=== PATIENT | female | born 1965 | race Caucasian/White ===

== ENCOUNTER 2016-07-04 11:38 | Emergency (ER) | payer OTHER ==
[2016-07-04 13:19] VITALS: BP 152/85
--- NOTE | 2016-07-04 13:33 | UC ---
Respiratory Complaint HPI - HPI Summary HPI Summary: COUGH , CHEST CONGESTION X 5 DAYS + NASAL CONGESTION, PND, LEFT SIDED CHEST PAIN WITH DEEP INHALATION AND COUGHING , NO SOB - History of Current Complaint Chief Complaint: UCChestPain Stated Complaint: COUGH Time Seen by Provider: 07/04/16 13:16 Hx Obtained From: Patient Hx Last Menstrual Period: N/A Onset/Duration: Gradual Onset, Lasting Days - 5, Still Present Timing: Constant Severity Initially: Moderate Severity Currently: Moderate Character: Cough: Nonproductive Aggravating Factors: Exertion, Deep Breaths Alleviating Factors: Nothing Associated Signs And Symptoms: Positive: Pleuritic Chest Pain, URI, Nasal Congestion, Sinus Discomfort. Negative: Dyspnea, Fever, Chills, Wheezing - Allergies/Home Medications Allergies/Adverse Reactions: Allergies Allergy/AdvReac Type Severity Reaction Status Date / Time No Known Allergies Allergy Verified 04/24/16 15:53 PMH/Surg Hx/FS Hx/Imm Hx Endocrine History Of: Denies: Diabetes Cardiovascular History Of: Reports: Hypertension Respiratory History Of: Reports: COPD - Surgical History Surgical History: Yes Surgery Procedure, Year, and Place: Bilateral Oopherectomy, [place] - Family History Known Family History: Positive: None Negative: Hypertension, Diabetes Family History: no cardiovascular issues reported in family - Social History Alcohol Use: None Substance Use Type: None Smoking Status (MU): Heavy Every Day Tobacco Smoker Type: Cigarettes Amount Used/How Often: 1 1/2 ppd Have You Smoked in the Last Year: Yes Household Exposure Type: Cigarettes - Immunization History Most Recent Influenza Vaccination: March 2016 Review of Systems Constitutional: Negative Skin: Negative Eyes: Negative ENT: Nasal Discharge Respiratory: Cough Cardiovascular: Negative Gastrointestinal: Negative Genitourinary: Negative All Other Systems Reviewed And Are Negative: Yes Physical Exam Triage Information Reviewed: Yes Appearance: Well-Appearing, No Pain Distress, Well-Nourished Vital Signs: Initial Vital Signs Temp 98.5 F 07/04/16 13:07 Pulse 68 07/04/16 13:07 Resp 16 07/04/16 13:07 BP 152/85 07/04/16 13:07 Pulse Ox 97 07/04/16 13:07 Vital Signs Reviewed: Yes Eye Exam: Normal Eyes: Positive: Conjunctiva Clear ENT: Positive: Normal ENT inspection, Hearing grossly normal, Pharyngeal erythema, Nasal congestion, Nasal drainage, TMs normal Neck exam: Normal Neck: Positive: Supple, Nontender, No Lymphadenopathy Respiratory Exam: Normal Respiratory: Positive: Chest non-tender, Lungs clear, Normal breath sounds Cardiovascular: Positive: RRR, No Murmur, Pulses Normal Abdominal Exam: Normal Skin Exam: Normal UC Diagnostic Evaluation - Laboratory O2 Sat by Pulse Oximetry: 97 Respiratory Course/Dx - Differential Dx/Diagnosis Provider Diagnoses: BRONCHITIS Discharge - Discharge Plan Condition: Stable Disposition: HOME Prescriptions: Azithromycin TAB* [Zithromax TAB (Z-ROBBIE) 250 mg #6 tabs] 2 tab PO .TODAY, THEN 1 DAILY #1 robbie Benzonatate CAP* [Tessalon CAP*] 100 mg PO TID PRN #21 cap PRN Reason: Cough Patient Education Materials: Acute Bronchitis (ED) Referrals: ALEX Lynn [Primary Care Provider] -
== END 2016-07-04 13:40 | disposition home or self-care (01) ==
LOC: UCCORT 11:38
DX: J40 Bronchitis, not specified as acute or chronic (principal); F17.210 Nicotine dependence, cigarettes, uncomplicated
CPT/HCPCS: 93005; 99212; G0463

== ENCOUNTER 2016-10-01 21:04 | Emergency (ER) | payer OTHER ==
[2016-10-01 21:35] VITALS: BP 154/71
[2016-10-01] MEDS ORDERED: Amoxicillin/Clavulanate TAB* 875 MG PO ONE (22:05)
[2016-10-01] MEDS ORDERED: Acetaminop/Codeine 30 MG TAB* 1 TAB (300 MG/30 MG) PO ONE (22:06)
[2016-10-01] MEDS ORDERED: Albuterol HFA INHALER* 8 gm MDI INH ONE (22:06)
--- NOTE | 2016-10-01 22:07 | UC ---
Respiratory Complaint HPI - HPI Summary HPI Summary: 7 days of worsening chest congestion, nasal drainage, head and sinus pain - History of Current Complaint Chief Complaint: UCGeneralIllness Stated Complaint: SORE THROAT Time Seen by Provider: 10/01/16 22:00 Hx Obtained From: Patient Hx Last Menstrual Period: N/A ?: No Onset/Duration: Gradual Onset, Lasting Days - 7, Worse Since - today Timing: Constant Severity Initially: Mild Severity Currently: Moderate Character: Cough: Nonproductive Aggravating Factors: Nothing Alleviating Factors: Nothing Associated Signs And Symptoms: Positive: Pleuritic Chest Pain, URI, Nasal Congestion, Sinus Discomfort - Allergies/Home Medications Allergies/Adverse Reactions: Allergies Allergy/AdvReac Type Severity Reaction Status Date / Time No Known Allergies Allergy Verified 10/01/16 21:35 Home Medications: Home Medications Ibuprofen [Advil] 800 mg PO Q6H PRN 10/01/16 [History Confirmed 10/01/16] PMH/Surg Hx/FS Hx/Imm Hx Previously Healthy: No Endocrine History Of: Denies: Diabetes Cardiovascular History Of: Reports: Hypertension Respiratory History Of: Reports: COPD - Surgical History Surgical History: Yes Surgery Procedure, Year, and Place: Bilateral Oopherectomy, 2012, [place] - Family History Known Family History: Positive: None Negative: Hypertension, Diabetes Family History: no cardiovascular issues reported in family - Social History Occupation: Employed Full-time Lives: With Family Alcohol Use: Rare Substance Use Type: None Smoking Status (MU): Heavy Every Day Tobacco Smoker Type: Cigarettes Amount Used/How Often: 1 1/2 ppd Have You Smoked in the Last Year: Yes When Did the Patient Quit Smoking/Using Tobacco: 32 YRS Household Exposure Type: Cigarettes Cessation Counseling: Counseled 3+Min - 10 Min - Immunization History Most Recent Influenza Vaccination: March 2016 Review of Systems Constitutional: Negative Skin: Negative Eyes: Negative ENT: Sore Throat, Nasal Discharge Respiratory: Cough Cardiovascular: Negative Gastrointestinal: Negative Genitourinary: Negative Motor: Negative Neurovascular: Negative Musculoskeletal: Arthralgia Neurological: Headache Psychological: Negative All Other Systems Reviewed And Are Negative: Yes Physical Exam Triage Information Reviewed: Yes Appearance: Ill-Appearing, Pain Distress, Obese Vital Signs: Initial Vital Signs Temp 98.6 F 10/01/16 21:28 Pulse 65 10/01/16 21:28 Resp 18 10/01/16 21:28 BP 154/71 05/14/17 21:28 Pulse Ox 99 10/01/16 21:28 Vital Signs Reviewed: Yes Eye Exam: Normal Eyes: Positive: Conjunctiva Clear ENT Exam: Normal ENT: Positive: Normal ENT inspection, Hearing grossly normal, Pharynx normal, Nasal congestion, Nasal drainage, TMs normal. Negative: Tonsillar swelling, Tonsillar exudate, Trismus, Muffled/hoarse voice Dental Exam: Normal Neck exam: Normal Neck: Positive: Supple, Nontender, No Lymphadenopathy Respiratory Exam: Normal Respiratory: Positive: Chest non-tender, No respiratory distress, No accessory muscle use, Decreased breath sounds, Wheezing Cardiovascular Exam: Normal Cardiovascular: Positive: RRR, No Murmur, Pulses Normal, Brisk Capillary Refill Musculoskeletal Exam: Normal Musculoskeletal: Positive: Strength Intact, ROM Intact, No Edema Neurological Exam: Normal Neurological: Positive: Alert, Muscle Tone Normal Psychological Exam: Normal Skin Exam: Normal UC Diagnostic Evaluation - Laboratory O2 Sat by Pulse Oximetry: 99 Respiratory Course/Dx - Course Course Of Treatment: flonase, albuterol, augmentin,nicotine cesation information , hypertension follow up at [facility] suggestions follow withpcp 1 week - Differential Dx/Diagnosis Differential Diagnosis/HQI/PQRI: Asthma, Bronchitis, Exacerbation Of COPD, Laryngitis, Lower Resp Infection Provider Diagnoses: Acute Rhinosinusitis, Acute exacerbation of COPD, nicotine dependant, hypertension with dx and treatment Discharge - Discharge Plan Condition: Stable Disposition: HOME Prescriptions: Albuterol HFA INHALER* [Ventolin HFA Inhaler*] 2 puff INH Q4H PRN #1 mdi PRN Reason: cough Amoxicillin/Clavulanate TAB* [Augmentin TAB 875*] 875 mg PO BID #19 tab Fluticasone NASAL SPRAY 50MCG* [Flonase NASAL SPRAY 50MCG*] 2 spray BOTH NARES DAILY #1 btl Patient Education Materials: How to Use a Metered-Dose Inhaler and a Spacer (ED ), How to Use Nasal [place] (ED), Sinusitis (ED), DASH Eating Plan (ED), Hypertension (ED), How to Stop Smoking (ED) Forms: *Work Release Referrals: ALEX Lynn [Primary Care Provider] - 2 Weeks
== END 2016-10-01 22:28 | disposition home or self-care (01) ==
LOC: UCCORT 21:04
DX: I10 Essential (primary) hypertension (principal); E66.9 Obesity, unspecified; F17.210 Nicotine dependence, cigarettes, uncomplicated; Z71.6 Tobacco abuse counseling
CPT/HCPCS: 99213; A9270-GY; G0463

== ENCOUNTER 2016-10-26 15:39 | Emergency (ER) | payer OTHER ==
[2016-10-26 16:11] VITALS: BP 148/63
--- NOTE | 2016-10-26 16:35 | UC ---
Eye Complaint HPI - HPI Summary HPI Summary: Patient has been treated for a cellulitis of the upper eye lid of the left eye with amoxicillin, she has not been able to tolerate the amoxicillin as it hurts her stomach. she does not improvement in the eye swelling and pain. - History of Current Complaint Chief Complaint: UCUpperExtremity Stated Complaint: WRIST PAIN Time Seen by Provider: 10/26/16 16:25 Hx Obtained From: Patient Hx Last Menstrual Period: N/A ?: No Onset/Duration: Sudden Onset, Lasting Days Timing: Constant Severity Initially: Severe Severity Currently: Moderate Location of Injury: Conjunctiva, Eye Lid (upper) Character: Dull Aggravating Factor(s): Nothing Alleviating Factor(s): Nothing Associated Signs And Symptoms: Positive: Swelling - Risk Factors Penetrating Injury Risk Factor: Negative Globe Rupture Risk Factors: Negative Acute Glaucoma Risk Factors: Negative Optic Artery Occlusion Risk Factors: Negative - Allergies/Home Medications Allergies/Adverse Reactions: Allergies Allergy/AdvReac Type Severity Reaction Status Date / Time No Known Allergies Allergy Verified 10/26/16 16:04 PMH/Surg Hx/FS Hx/Imm Hx Previously Healthy: Yes - Surgical History Surgical History: Yes Surgery Procedure, Year, and Place: Bilateral Oopherectomy, 2012, [place] - Family History Known Family History: Positive: None Negative: Hypertension, Diabetes Family History: no cardiovascular issues reported in family - Social History Alcohol Use: Rare Substance Use Type: None Smoking Status (MU): Heavy Every Day Tobacco Smoker Type: Cigarettes Amount Used/How Often: 1 1/2 ppd Have You Smoked in the Last Year: Yes When Did the Patient Quit Smoking/Using Tobacco: 32 YRS Household Exposure Type: Cigarettes - Immunization History Most Recent Influenza Vaccination: March 2016 Review of Systems Constitutional: Negative Skin: Negative Eyes: Other - deviation of gaze. eye lid swelling ENT: Negative Respiratory: Negative Cardiovascular: Negative Gastrointestinal: Negative Genitourinary: Negative Motor: Negative Neurovascular: Negative Musculoskeletal: Negative Neurological: Negative Psychological: Negative All Other Systems Reviewed And Are Negative: Yes Physical Exam Triage Information Reviewed: Yes Appearance: Well-Nourished, Ill-Appearing, Pain Distress Vital Signs: Initial Vital Signs Temp 99.0 F 10/26/16 16:05 Pulse 57 10/26/16 16:05 Resp 16 10/26/16 16:05 BP 148/63 10/26/16 16:05 Pulse Ox 98 10/26/16 16:05 Vital Signs Reviewed: Yes Eye Exam: Normal Eyes: Positive: Conjunctiva Inflamed, Other: - upper lid swelling noted, conjunctiva swollen, sclear white, non icteric, left eye deviated laterally. ENT Exam: Normal ENT: Positive: Hearing grossly normal, Pharynx normal, TMs normal Dental Exam: Normal Neck exam: Normal Neck: Positive: Supple, Nontender, No Lymphadenopathy Respiratory Exam: Normal Respiratory: Positive: Chest non-tender, Lungs clear, Normal breath sounds Cardiovascular Exam: Normal Cardiovascular: Positive: RRR, No Murmur, Pulses Normal Abdominal Exam: Normal Abdomen Description: Positive: Nontender, No Organomegaly, Soft Bowel Sounds: Positive: Present Musculoskeletal Exam: Normal Musculoskeletal: Positive: Strength Intact, ROM Intact, No Edema Neurological Exam: Normal Neurological: Positive: Alert, Muscle Tone Normal Psychological Exam: Normal Skin Exam: Normal Eye Complaint Course/Dx - Course Course Of Treatment: hx obtained,exam performed ,meds reviewed, changed ABX to keflex - Differential Dx/Diagnosis Differential Diagnosis/HQI/PQRI: Conjunctivitis, Hyphema, Keratitis, Penetrating Injury, Periorbital Cellulitis Provider Diagnoses: orbital cellulitis of left eye Discharge - Discharge Plan Condition: Stable Disposition: HOME Prescriptions: Cephalexin CAP* [Keflex CAP*] 500 mg PO TID #21 cap Patient Education Materials: Orbital Cellulitis (ED) Additional Instructions: 1. stop the amoxicillin, start the keflex as prescribed. 2. Continue with the warm compresses to the eye multiple times a day,. 3. follow up with any increase in swelling or pain.
--- NOTE | 2016-10-26 16:47 | UC ---
Upper Extremity HPI - HPI Summary HPI Summary: Patient has has increased swelling and pain in the right wrist for the past week , does not remember any injury. - History of Current Complaint Hx Obtained From: Patient Hx Last Menstrual Period: N/A ?: No Onset/Duration: Sudden Onset, Lasting Weeks Severity Initially: Moderate Severity Currently: Severe Location Of Pain: Is Discrete @ - lateral right wrist Character: Aching, Spasmodic, Stiffness Aggravating Factor(s): Movement Alleviating Factor(s): Nothing Associated Signs And Symptoms: Positive: Swelling, Weakness - Risk Factors Non-Orthopedic Risk Factor: Negative <Lexie Dominguez - Last Filed: 10/26/16 17:36> <Nancy Orozco - Last Filed: 10/26/16 18:45> - History of Current Complaint Chief Complaint: UCUpperExtremity Stated Complaint: WRIST PAIN Time Seen by Provider: 10/26/16 16:25 - Allergies/Home Medications Allergies/Adverse Reactions: Allergies Allergy/AdvReac Type Severity Reaction Status Date / Time No Known Allergies Allergy Verified 10/26/16 16:04 PMH/Surg Hx/FS Hx/Imm Hx Previously Healthy: Yes - Surgical History Surgical History: Yes Surgery Procedure, Year, and Place: Bilateral Oopherectomy, 2012, [place] - Family History Known Family History: Positive: None Negative: Hypertension, Diabetes Family History: no cardiovascular issues reported in family - Social History Alcohol Use: Rare Substance Use Type: None Smoking Status (MU): Heavy Every Day Tobacco Smoker Type: Cigarettes Amount Used/How Often: 1 1/2 ppd Have You Smoked in the Last Year: Yes When Did the Patient Quit Smoking/Using Tobacco: 32 YRS Household Exposure Type: Cigarettes - Immunization History Most Recent Influenza Vaccination: March 2016 <Lexie Dominguez - Last Filed: 10/26/16 17:36> Review of Systems Constitutional: Negative Skin: Negative Eyes: Negative ENT: Negative Respiratory: Negative Cardiovascular: Negative Gastrointestinal: Negative Genitourinary: Negative Motor: Negative Neurovascular: Negative Musculoskeletal: Arthralgia, Decreased ROM, Edema, Myalgia Neurological: Negative Psychological: Negative All Other Systems Reviewed And Are Negative: Yes <Lexie Dominguez - Last Filed: 10/26/16 17:36> Physical Exam Triage Information Reviewed: Yes Appearance: Well-Nourished, Ill-Appearing, Pain Distress Vital Signs: Initial Vital Signs Temp 99.0 F 10/26/16 16:05 Pulse 57 10/26/16 16:05 Resp 16 10/26/16 16:05 BP 148/63 10/26/16 16:05 Pulse Ox 98 10/26/16 16:05 Vital Signs Reviewed: Yes Eye Exam: Normal Eyes: Positive: Conjunctiva Clear ENT Exam: Normal ENT: Positive: Hearing grossly normal, Pharynx normal, TMs normal Dental Exam: Normal Neck exam: Normal Neck: Positive: Supple, Nontender, No Lymphadenopathy Respiratory Exam: Normal Respiratory: Positive: Chest non-tender, Lungs clear, Normal breath sounds Cardiovascular Exam: Normal Cardiovascular: Positive: RRR, No Murmur, Pulses Normal Abdominal Exam: Normal Abdomen Description: Positive: Nontender, No Organomegaly, Soft Bowel Sounds: Positive: Present Musculoskeletal Exam: Normal Musculoskeletal: Positive: Strength Limited @, ROM Limited @, Edema @ - in right wrist, Other: - PROM and AROM is painful in all directions Neurological Exam: Normal Neurological: Positive: Alert, Muscle Tone Normal Psychological Exam: Normal Skin Exam: Normal <Lexie Dominguez - Last Filed: 10/26/16 17:36> Vital Signs: Initial Vital Signs Temp 99.0 F 10/26/16 16:05 Pulse 57 10/26/16 16:05 Resp 16 10/26/16 16:05 BP 148/63 10/26/16 16:05 Pulse Ox 98 10/26/16 16:05 <Nancy Orozco - Last Filed: 10/26/16 18:45> Upper Extremity Course/Dx - Course Course Of Treatment: hx obtained,exam performed ,meds reviewed, xray obtained negative for fracture, splint appliled, referral for Ortho given.., - Differential Dx/Diagnosis Differential Diagnosis/HQI/PQRI: Arthritis, Bursitis, Contusion, Fracture (Open) , Fracture (Closed), Strain, Sprain Provider Diagnoses: right wrist strain. right wrist sprain. <Lexie Dominguez - Last Filed: 10/26/16 17:36> - Course Course Of Treatment: Note from Dr. Orozco after discussion with Lexie Dominguez , JADA. Cephalexin not given to this pt. Pharmacy notified not to fill cephalexin for this patient. <Nancy Orozco - Last Filed: 10/26/16 18:45> Discharge <Lexie Dominguez - Last Filed: 10/26/16 17:36> <Nancy Orozco - Last Filed: 10/26/16 18:45> - Discharge Plan Condition: Stable Disposition: HOME Prescriptions: Cephalexin CAP* [Keflex CAP*] 500 mg PO TID #21 cap Meloxicam [Mobic] 15 mg PO DAILY #30 tab Referrals: Buddy Zendejas MD [Medical Doctor] - Edy GamingEdy [Primary Care Provider] - Additional Instructions: 1. wear the splint for rest and support, 2. Take the meloxicam daily for anti inflammatory affects. 3. Ice or heat as tolerated. 5. Follow up with ortho if pain is not resolving. Addendum entered and electronically signed by Lexie Dominguez NP 10/26/16 17: 36: Addendum Addendum: splint applied and meloxicam given.
--- NOTE | 2016-10-26 17:16 | RAD ---
Indication: Right wrist pain 3 views of the wrist demonstrates no fracture. No other bone or joint abnormality is identified. There may be degenerative changes at the trapezium first metacarpal joint. IMPRESSION: NO FRACTURE OF THE WRIST IS NOTED.
== END 2016-10-26 17:50 | disposition home or self-care (01) ==
LOC: UCCORT 15:39
DX: S63.501A Unspecified sprain of right wrist, initial encounter (principal); F17.210 Nicotine dependence, cigarettes, uncomplicated; X58.XXXA Exposure to other specified factors, initial encounter; Y92.9 Unspecified place or not applicable
CPT/HCPCS: 99213; G0463

== ENCOUNTER 2017-02-01 07:11 | Day surgery (SDC) | payer OTHER ==
[~2017-02-01 07:11] MED LIST: Buffered Lidocaine 0.9% SYRIN* 5 ML/SYR SYRINGE INTRADERM ONE
[2017-02-01] MEDS ORDERED: Bupivacaine 0.25% SDV* 30 ML ONE (07:47)
[2017-02-01] MEDS ORDERED: fentaNYL* 50 MCG/ML 2 ML VIAL (100 MCG VIAL) ONE (08:17)
[2017-02-01] MEDS ORDERED: Midazolam* 1 MG/ML 2 ML VIAL (2 MG) ONE ×2 (08:17→08:29)
[2017-02-01] MEDS ORDERED: Famotidine IV* 10 MG/ML 2 ML (20 mg) ONE (08:23)
[2017-02-01] MEDS ORDERED: KETAMINE HCL* 50 MG/ML 10 ML VIAL ONE (08:31)
[2017-02-01] MEDS ORDERED: HYDROcodone/ACETAMIN 5-325 MG* 1 TAB PO PRN (09:07)
[2017-02-01] MEDS ORDERED: PROCHLORPERAZINE INJ 5 MG/ML 2 ML VIAL IV PRN (09:07)
[2017-02-01] MEDS ORDERED: fentaNYL* 50 MCG/ML 2 ML VIAL (100 MCG VIAL) IV PRN (09:07)
[2017-02-01] MEDS ORDERED: Acetaminophen TAB* 325 MG PO PRN (09:07)
[2017-02-01] MEDS ORDERED: Ondansetron INJ* 2 MG/ML VIAL IV PRN (09:07)
[2017-02-01] MEDS ORDERED: DiMENhydriNATE IV* 50 MG/ML VIAL IV PUSH PRN (09:07)
[2017-02-01] MEDS ORDERED: Propofol* 10 MG/ML 20 ML BTL IV PUSH ONE (09:08)
[2017-02-01] MEDS ORDERED: Ketorolac INJ* 30 MG/ML 1 ML VIAL ONE (09:08)
[2017-02-01] MEDS ORDERED: Lidocaine 2% PF * 5 ML VIAL ONE (09:08)
[2017-02-01 09:47] VITALS: BP 133/55
--- NOTE | 2017-02-01 19:24 | OP ---
DATE OF OPERATION: 02/01/17 - [facility] DATE OF : 63 SURGEON: Craig Driver MD CAREER SERVICES COORDINATOR: LETY Nieto ANESTHESIOLOGIST: Dr. Juárez. ANESTHESIA: Local MAC. PRE-OP DIAGNOSIS: Right de Quervain's disease with ganglion cyst off the first dorsal compartment tendon sheath. POST-OP DIAGNOSIS: Right de Quervain's disease with ganglion cyst off the first dorsal compartment tendon sheath. OPERATIVE PROCEDURE: 1. Right wrist de Quervain's release. 2. Excision of ganglion, right first dorsal compartment tendon sheath. INDICATIONS: Simin has had recurrent de Quervain's disease. After an injection, she had a cyst that had popped up off the tendon sheath and was quite large. This was very uncomfortable for her. We had talked about doing another injection versus surgery. She wanted to proceed with surgery. We talked about risks and benefits and what the surgery entails. She wanted to proceed. ESTIMATED BLOOD LOSS: 5 mL. COMPLICATIONS: None. FINDINGS: As expected, there was a ganglion cyst off the volar aspect of the tendon sheath. There was an accessory compartment and abundant tenosynovitis. DESCRIPTION OF PROCEDURE: Simin was seen in the preoperative holding area. The correct site, side, and procedure were identified. We came back to the operating room where she got some anesthesia and then I anesthetized the operative area with 0.25% plain Marcaine. The arm was then prepped and draped in the usual fashion and a formal time-out was performed. I exsanguinated the arm with the Esmarch and the tourniquet was inflated to 250 mmHg. I began by making a transverse 2 cm incision just a bit proximal to the radial styloid right over the first dorsal compartment tendon sheath and on the proximal aspect of the cyst. Full thickness flaps were bluntly raised off the tendon sheath, and Ragnell retractors were placed. With the tendon sheath under direct visualization, the cyst was readily apparent. I came on the dorsal margin of the tendon sheath and I incised this in line with the tendons using the 15 blade. I continued the release proximally and distally with the tenotomy scissors. A Hosea retractor was used proximally and distally to ensure that there was no interposing soft tissue between the tendon sheath and the scissors. Once I had done the release completely, I came back volarly and I excised the ganglion cyst and cauterized the base. This was passed off as a specimen. I then excised an abundant amount of tenosynovitis. There was really quite a bit. Once I had this all excised, it was readily apparent that dorsally there was an accessory compartment. I used the #15 blade to longitudinally incise the septum between the compartments. The tenotomy scissors were used to continue this release proximally and distally. I then used the tenotomy scissors to excise the septum at the base. I excised more tenosynovium. Once everything was nice and clean and the release was complete, I irrigated out copiously, I made sure the tendons were nicely back inside the flaps of the tendon sheath. The skin was closed with 3-0 Monocryl suture and Steri-Strips. Wound was dressed with 4x4, sterile Webril, and a thumb spica splint was placed. Tourniquet was deflated. The hand pinked up immediately. Total tourniquet time was about 20 to 25 minutes. She was taken to the recovery room in stable condition. [id number]/[facility] #: [id number] RAMIRO
== END 2017-02-01 09:55 | disposition home or self-care (01) ==
LOC: OREAST 07:11
PROVIDERS: ATTEND Orthopaedic Surgery Hand Surgery
DX: M65.4 Radial styloid tenosynovitis [de Quervain] (principal); M67.431 Ganglion, right wrist; I10 Essential (primary) hypertension; F17.210 Nicotine dependence, cigarettes, uncomplicated
CPT/HCPCS: 88304; J1885; J2250; J2704; J3010

== ENCOUNTER 2017-06-15 11:55 | Emergency (ER) | payer OTHER ==
[2017-06-15 13:13] VITALS: BP 131/65
--- NOTE | 2017-06-15 14:03 | UC ---
Respiratory Complaint HPI - HPI Summary HPI Summary: 51F presents with cough, SOB for past couple days. She states she has developed a fever. She denies any sore throat. She denies any chest pain. She denies any abdominal pain, nausea, or vomiting. She took some OTC cough medication which helped. She states the cough is productive. She denies any sinus congestion. She admits to a headache. She denies any sore throat. - History of Current Complaint Chief Complaint: UCRespiratory Stated Complaint: COUGH,FEVER,NAUSEA Time Seen by Provider: 06/15/17 13:57 Hx Last Menstrual Period: N/A Pain Intensity: 3 - Allergies/Home Medications Allergies/Adverse Reactions: Allergies Allergy/AdvReac Type Severity Reaction Status Date / Time No Known Allergies Allergy Verified 06/15/17 13:06 PMH/Surg Hx/FS Hx/Imm Hx Endocrine History: Other Other Endocrine History: no DM Cardiovascular History: Hypertension - Surgical History Surgical History: Yes Surgery Procedure, Year, and Place: 2012 Bilateral Oopherectomy, [place] - Family History Known Family History: Positive: None Negative: Hypertension, Diabetes Family History: no cardiovascular issues reported in family - Social History Alcohol Use: None Alcohol Amount: MAYBE 2 DRINKS/YEAR Substance Use Type: None Smoking Status (MU): Heavy Every Day Tobacco Smoker Type: Cigarettes Amount Used/How Often: 1 1/2 ppd Have You Smoked in the Last Year: Yes When Did the Patient Quit Smoking/Using Tobacco: 32 YRS Household Exposure Type: Cigarettes - Immunization History Most Recent Influenza Vaccination: March 2016 Review of Systems Constitutional: Fever ENT: Nasal Discharge Respiratory: Shortness Of Breath, Cough Cardiovascular: Negative All Other Systems Reviewed And Are Negative: Yes Physical Exam Triage Information Reviewed: Yes Appearance: Well-Appearing Vital Signs: Initial Vital Signs Temp 99.5 F 06/15/17 13:07 Pulse 60 06/15/17 13:07 Resp 18 06/15/17 13:07 BP 131/65 06/15/17 13:07 Pulse Ox 100 06/15/17 13:07 Vital Signs Reviewed: Yes Eyes: Positive: Conjunctiva Clear ENT: Positive: Normal ENT inspection, Pharynx normal, TMs normal Neck: Positive: Supple, Nontender, No Lymphadenopathy Respiratory: Positive: Lungs clear, Normal breath sounds Cardiovascular: Positive: RRR Abdomen Description: Positive: Nontender, Soft Bowel Sounds: Positive: Present Musculoskeletal Exam: Normal Neurological Exam: Normal Psychological Exam: Normal Skin Exam: Normal UC Diagnostic Evaluation - Laboratory O2 Sat by Pulse Oximetry: 100 Respiratory Course/Dx - Course Course Of Treatment: 51F presents with cough, SOB for past couple days. She states she has developed a fever. She denies any sore throat. She denies any chest pain. She denies any abdominal pain, nausea, or vomiting. She took some OTC cough medication which helped. She states the cough is productive. She denies any sinus congestion. She admits to a headache. She denies any sore throat. on exam lungs CTA. flu post. will treat with inhaler, prednisone, and tessalon and tamiflu. patient has history of high blood pressure so blood pressure is good at this visit. medication reviewed. patient understand and agrees with plan. - Differential Dx/Diagnosis Differential Diagnosis/HQI/PQRI: Bronchitis, Influenza, Lower Resp Infection Provider Diagnoses: influenza A Discharge - Discharge Plan Condition: Good Disposition: HOME Prescriptions: Albuterol HFA INHALER* [Ventolin HFA Inhaler*] 1 puff INH Q4H PRN #1 mdi PRN Reason: Cough Benzonatate CAP* [Tessalon 100 MG CAP*] 100 mg PO TID #21 cap Oseltamivir CAP* [Tamiflu CAP*] 75 mg PO BID #10 cap predniSONE TAB* [Deltasone TAB*] 50 mg PO DAILY #5 tab Patient Education Materials: Influenza (ED) Referrals: Mariaelena Rubio MD [Primary Care Provider] - Additional Instructions: Take tamiflu twice a day for 5 days Use Tessalon three times a day for cough Use inhaler one puff every 4 hours for cough as needed Take steroid once a day for 5 days Use saline in the nose for nasal congestion Use humidifier or place warm bowls of water around the room for cough Cough can last up to 4 weeks Follow up with primary care physician in 5 days Return to ED if develop any new or worsening symptoms
== END 2017-06-15 14:24 | disposition home or self-care (01) ==
LOC: UCCORT 11:55
DX: J09.X2 Influenza due to identified novel influenza A virus with other respiratory manifestations (principal); I10 Essential (primary) hypertension; F17.210 Nicotine dependence, cigarettes, uncomplicated
CPT/HCPCS: 87502; 99212; G0463

== ENCOUNTER 2017-10-17 17:34 | Emergency (ER) | payer OTHER ==
[2017-10-17 18:09] VITALS: BP 133/69
--- NOTE | 2017-10-17 19:14 | ED ---
Upper Extremity Pain - HPI Summary HPI Summary: 52 yr old female with left wrist pain. Onset over the past day with some associated mild STS. 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 Denies weakness, numbness in the hand. No swelling or pain to forearm or arm. - History of Current Complaint Chief Complaint: UCUpperExtremity Stated Complaint: L WRIST ISSUE Time Seen by Provider: 10/17/17 18:45 Hx Last Menstrual Period: N/A - Allergies/Home Medications Allergies/Adverse Reactions: Allergies Allergy/AdvReac Type Severity Reaction Status Date / Time No Known Allergies Allergy Verified 06/15/17 13:06 Home Medications: Home Medications Gabapentin [Neurontin] 100 mg PO DAILY 10/17/17 [History Confirmed 10/17/17] buPROPion TAB* [Wellbutrin TAB*] 100 mg PO DAILY 10/17/17 [History Confirmed ] PMH/Surg Hx/FS Hx/Imm Hx Endocrine/Hematology History: Denies: Hx Diabetes Cardiovascular History: Reports: Hx Hypertension - ON DAILY MEDS, STATES WELL CONTROLLED Respiratory History: Reports: Hx Chronic Obstructive Pulmonary Disease (COPD) GI History: Reports: Hx Gastroesophageal Reflux Disease - Hx OF NO DAILY MEDS CURRENTLY Sensory History: Reports: Hx Contacts or Glasses - GLASSES Opthamlomology History: Reports: Hx Contacts or Glasses - GLASSES Psychiatric History: Reports: Hx Anxiety - Hx OF, NO Sx IN FEW YEARS, NO MEDS - Surgical History Surgery Procedure, Year, and Place: 2013 Bilateral Oopherectomy. RIGHT WRIST GANGLION CYST REMOVAL Hx Anesthesia Reactions: No Infectious Disease History: No Infectious Disease History: Denies: Traveled Outside the [place] in Last 30 Days - Family History Known Family History: Positive: None Negative: Hypertension, Diabetes Family History: no cardiovascular issues reported in family - Social History Alcohol Use: None Alcohol Amount: MAYBE 2 DRINKS/YEAR Substance Use Type: Reports: None Smoking Status (MU): Heavy Every Day Tobacco Smoker Type: Cigarettes Amount Used/How Often: 1 1/2 ppd Have You Smoked in the Last Year: Yes Review of Systems Constitutional: Negative Positive: Other - left wrist pain All Other Systems Reviewed And Are Negative: Yes Physical Exam Triage Information Reviewed: Yes Vital Signs On Initial Exam: Initial Vitals Temp Pulse Resp BP Pulse Ox 97.4 F 58 16 133/69 99 10/17/17 18:00 10/17/17 18:00 10/17/17 18:00 10/17/17 18:00 10/17/17 18:00 Vital Signs Reviewed: Yes Appearance: Positive: Well-Appearing, No Pain Distress Skin: Positive: Warm, Skin Color Reflects Adequate Perfusion Head/Face: Positive: Normal Head/Face Inspection Eyes: Positive: EOMI ENT: Positive: Normal ENT inspection Neck: Positive: Nontender Respiratory/Lung Sounds: Positive: Clear to Auscultation, Breath Sounds Present Cardiovascular: Positive: RRR, Pulses are Symmetrical in both Upper and Lower Extremities. Negative: Murmur Abdomen Description: Positive: Nontender Musculoskeletal: Positive: Other - left wrist with some edema, and mild tenderness, no increased warmth. No bruise. Neurological: Positive: Sensory/Motor Intact, Alert, Oriented to Person Place, Time, CN Intact II-III Psychiatric: Positive: Normal - Gabriela Coma Scale Best Eye Response: 4 - Spontaneous Best Motor Response: 6 - Obeys Commands Best Verbal Response: 5 - Oriented Coma Scale Total: 15 Diagnostics - Vital Signs Vital Signs Temp Pulse Resp BP Pulse Ox 10/17/17 18:00 97.4 F 58 16 133/69 99 - Laboratory Lab Statement: Any lab studies that have been ordered have been reviewed, and results considered in the medical decision making process. - Radiology wrist left Xray Interpretation: No Acute Changes Radiology Interpretation Completed By: Radiologist Course/Dx - Course Course Of Treatment: 52 yr old with left wrist pain, and mild swelling. No redness or increased warmth. Will give wrist splint. Referral to ortho made. Wrist splint ordered. - Diagnoses Provider Diagnoses: Left wrist sprain Discharge - Sign-Out/Discharge Documenting (check all that apply): Discharge/Admit/Transfer - Discharge Plan Condition: Good Disposition: HOME Patient Education Materials: Wrist Sprain (ED) Referrals: Mariaelena Rubio MD [Primary Care Provider] - 2 Days Buddy Zendejas MD [Medical Doctor] - - Billing Disposition and Condition Condition: GOOD Disposition: HOME
--- NOTE | 2017-10-17 19:17 | RAD ---
HISTORY: Left wrist pain and swelling COMPARISONS: None VIEWS: 3, Frontal, lateral, and oblique views of the left wrist FINDINGS: BONE DENSITY: Normal. BONES: There is no displaced fracture. JOINTS: There is no arthropathy. ALIGNMENT: There is no dislocation. SOFT TISSUES: Unremarkable. OTHER FINDINGS: None. IMPRESSION: NO ACUTE OSSEOUS INJURY. IF SYMPTOMS PERSIST, RECOMMEND REPEAT IMAGING.
== END 2017-10-17 19:31 | disposition home or self-care (01) ==
LOC: UCCORT 17:34
DX: S63.502A Unspecified sprain of left wrist, initial encounter (principal); X50.0XXA Overexertion from strenuous movement or load, initial encounter; Y93.F2 Activity, caregiving, lifting; Y92.9 Unspecified place or not applicable; I10 Essential (primary) hypertension; F17.210 Nicotine dependence, cigarettes, uncomplicated
CPT/HCPCS: 99213; G0463

== ENCOUNTER 2018-07-27 10:31 | Emergency (ER) | payer OTHER ==
[2018-07-27 11:13] VITALS: BP 154/80
--- NOTE | 2018-07-27 11:39 | UC ---
Cardiac HPI - HPI Summary HPI Summary: 53-year-old female presents with onset of left-sided chest wall pain yesterday. Patient states that she did have a colonoscopy performed yesterday. Later in the day started noticing some sharp mid axillary and anterior chest wall pain especially with deep breath. 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 She took ibuprofen 800 mg 1 yesterday with little relief so she took one of her muscle relaxants last night and was able to sleep through the night. States continue to have chest pain particularly with deep breath today so came for evaluation. She does note that she's had some mild nasal congestion and occasional productive cough for green sputum over the past 2-3 weeks. Denies fever, chills, rash, weakness, dizziness, lightheadedness, palpitations, shortness of breath, abdominal pain, nausea, vomiting, back or flank pain, dysuria, frequency, urgency, or hematuria. Patient does smoke 1-1/2 packs of cigarettes a day. Past medical history is significant for hypertension and COPD. Family history is significant for younger sisters both dying of heart attacks one at the age of 31 in 1997 and the other at the age of 40 in 2009. - History of Current Complaint Chief Complaint: UCUpperExtremity Stated Complaint: L ARMPIT/SIDE PAIN Time Seen by Provider: 07/27/18 11:19 Hx Obtained From: Patient Hx Last Menstrual Period: N/A Pain Intensity: 5 - Allergy/Home Medications Allergies/Adverse Reactions: Allergies Allergy/AdvReac Type Severity Reaction Status Date / Time No Known Allergies Allergy Verified 07/27/18 11:13 PMH/Surg Hx/FS Hx/Imm Hx Previously Healthy: Yes Cardiovascular History: Hypertension Respiratory History: COPD Psychological History: Depression - Surgical History Surgical History: Yes Surgery Procedure, Year, and Place: 2012 Bilateral Oopherectomy. RIGHT WRIST GANGLION CYST REMOVAL - Family History Known Family History: Positive: Cardiac Disease - 2 younger sisters of [place] at age of 31 and 40 Negative: Hypertension, Diabetes - Social History Occupation: Employed Full-time Lives: With Family Alcohol Use: Rare Alcohol Amount: MAYBE 2 DRINKS/YEAR Substance Use Type: None Smoking Status (MU): Heavy Every Day Tobacco Smoker Type: Cigarettes Amount Used/How Often: 1 1/2 ppd Have You Smoked in the Last Year: Yes When Did the Patient Quit Smoking/Using Tobacco: 32 YRS Household Exposure Type: Cigarettes - Immunization History Most Recent Influenza Vaccination: March 2016 Review of Systems All Other Systems Reviewed And Are Negative: Yes Constitutional: Negative: Fever, Chills Skin: Negative: Rash ENT: Positive: Nasal Discharge, Sinus Congestion. Negative: Sore Throat, Ear Ache, Sinus Pain/Tenderness Respiratory: Positive: Cough. Negative: Shortness Of Breath Cardiovascular: Positive: Chest Pain - Left chest wall. Negative: Palpitations Gastrointestinal: Negative: Abdominal Pain, Vomiting, Diarrhea, Nausea Genitourinary: Negative: Dysuria, Hematuria, Frequency, Urgency Motor: Negative: Weakness Neurovascular: Negative: Decreased Sensation Musculoskeletal: Negative: Arthralgia, Calf Tenderness - No swelling Neurological: Positive: Negative Is Patient Immunocompromised?: No Physical Exam - Summary Physical Exam Summary: GENERAL APPEARANCE: Well developed, obese, alert and cooperative, and appears to be in no acute distress. EYES: Conjunctiva clear. No drainage. Vision is grossly intact. EARS: External auditory canals and tympanic membranes clear, hearing grossly intact. NOSE: Mild nasal congestion. No nasal discharge. THROAT: Pharynx normal. No tonsilar inflammation, swelling, exudate, or lesions. Uvula midline. NECK: Neck supple, non-tender without lymphadenopathy. CHEST: Left mid axillary and lower anterior chest wall tenderness with palpation. CARDIAC: Normal S1 and S2. No S3, S4 or murmurs. Rhythm is regular. There is no peripheral edema, cyanosis or pallor. Extremities are warm and well perfused. Capillary refill is less than 2 seconds. Peripheral pulses intact. LUNGS: Clear to auscultation without rales, rhonchi, wheezing or diminished breath sounds. ABDOMEN: Positive bowel sounds. Soft, nondistended, nontender. No guarding or rebound. No masses or hepatosplenomegally. MUSKULOSKELETAL: ROM intact to all extremities. No joint erythema or tenderness. Normal muscular development. Normal gait. SKIN: Skin normal color, texture and turgor with no lesions or eruptions. Triage Information Reviewed: Yes Vital Signs: Initial Vital Signs Temp 97.8 F 07/27/18 11:06 Pulse 60 07/27/18 11:06 Resp 18 07/27/18 11:06 BP 154/80 07/27/18 11:06 Pulse Ox 99 07/27/18 11:06 Vital Signs Reviewed: Yes Diagnostics - EKG Cardiac Rate: Bradycardia Cardiac Rhythm: Sinus: Normal Ectopy: None ST Segment: Normal EKG Comparison: No Significant Change - Compared to EKG from 07/04/2016 - Assessment/Plan Course Of Treatment: 53-year-old female presents with onset of left-sided chest wall pain yesterday. Patient states that she did have a colonoscopy performed yesterday. Later in the day started noticing some sharp mid axillary and anterior chest wall pain especially with deep breath. 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 She took ibuprofen 800 mg 1 yesterday with little relief so she took one of her muscle relaxants last night and was able to sleep through the night. States continue to have chest pain particularly with deep breath today so came for evaluation. She does note that she's had some mild nasal congestion and occasional productive cough for green sputum over the past 2-3 weeks. Denies fever, chills, rash, weakness, dizziness, lightheadedness, palpitations, shortness of breath, abdominal pain, nausea, vomiting, back or flank pain, dysuria, frequency, urgency, or hematuria. Patient does smoke 1-1/ 2 packs of cigarettes a day. Past medical history is significant for hypertension and COPD. Family history is significant for younger sisters both dying of heart attacks one at the age of 31 in 1997 and the other at the age of 40 in 2009. Afebrile. Hypertensive otherwise vital signs stable. He exam revealed a adult female in no acute distress with mild nasal congestion, left mid axillary and anterior lower chest tenderness with palpation, no rashes or lesions, S1-S2 without extra heart sounds or murmurs, bilaterally clear breath sounds, soft nontender abdomen, and otherwise unremarkable exam. 12-lead EKG showed some nonspecific changes. Machine read as possible anterolateral infarct of indeterminate age however unchanged when compared to previous EKG from 07/04/2016. With the reproducible chest wall pain her symptoms are likely musculoskeletal in origin however with her reporting a recent colonoscopy her pleuritic-type pain could also be secondary to some retained gas or even possibly early shingles without rash. I am recommending conservative treatment at this time. She is to follow-up with her primary care provider in 2-3 days if symptoms persist. Anticipatory guidance and warning symptoms requiring immediate evaluation in the emergency room were reviewed with the patient. Verbalizes understanding and agrees with plan of care. - Differential Diagnoses - Chest Pain Differential Diagnosis/HQI/PQRI: ACS, Chest Wall, Lower Respiratory Infection, Pulmonary Embolism, Other: - Shingles - Clinical Impression Provider Diagnosis: Left-sided chest wall pain Discharge - Sign-Out/Discharge Documenting (check all that apply): Patient Departure All imaging exams completed and their final reports reviewed: No Studies - Discharge Plan Condition: Stable Disposition: HOME Patient Education Materials: Chest Wall Pain (ED) Referrals: Angela Templeton MD [Primary Care Provider] - 3 Days (Follow up in 2-3 days if no improvement in symptoms.) Additional Instructions: The EKG performed in the clinic today had some non-specific changes but was unchanged when compared to your EKG performed on 07/04/2016. I suspect that your pain is likely musculoskeletal in origin however could also be related to some retained gas from your recent colonoscopy or early shingles without a rash. Continue to use your ibuprofen and/or muscle relaxant as directed for pain. Try using a heating pad to the affected area for 15-20 minutes at least 4 times a day to help relax muscles and ease pain. Follow up with your primary care provider in 2-3 days if symptoms persist. Seek immediate medical attention in the emergency room if you develop fever greater than 100.5 F, have worsening chest pain, feel like your heart is racing or skipping beats, become weak, dizzy, or lightheaded, break out in a cold sweat , have shortness of breath, cough up blood, develop severe abdominal pain, persistent nausea or vomiting, or any worsening of symptoms. - Billing Disposition and Condition Condition: STABLE Disposition: Home
== END 2018-07-27 12:02 | disposition home or self-care (01) ==
LOC: UCCORT 10:31
DX: R07.89 Other chest pain (principal); R09.81 Nasal congestion; R05 Cough; I10 Essential (primary) hypertension; J44.9 Chronic obstructive pulmonary disease, unspecified; F17.210 Nicotine dependence, cigarettes, uncomplicated; Z82.49 Family history of ischemic heart disease and other diseases of the circulatory system
CPT/HCPCS: 99211; G0463

== ENCOUNTER 2019-02-17 13:02 | Day surgery (SDC) | payer OTHER ==
[~2019-02-17 13:02] MED LIST changes: -Buffered Lidocaine 0.9% SYRIN* 5 ML/SYR SYRINGE INTRADERM ONE; +Buffered Lidocaine 1% SYRIN* 1 ML/SYRINGE INTRADERM ONE; +Famotidine IV* 10 MG/ML 2 ML (20 mg) IV ONE; +Lactated Ringers 1000 ML Bag* 1,000 ML IV SCH
[2019-02-17] MEDS ORDERED: ceFAZolin 2 GM in NS PREMIX(*) 2 GM/100 ML BAG IVPB ONE (13:49)
[2019-02-17] MEDS ORDERED: Famotidine IV* 10 MG/ML 2 ML (20 mg) ONE (14:49)
[2019-02-17] MEDS ORDERED: Naloxone* 0.4 MG/ML 1 ML VIAL IV PRN (15:49)
[2019-02-17] MEDS ORDERED: oxyCODONE/Acetamin 5/325 MG* TAB PO PRN (15:49)
[2019-02-17] MEDS ORDERED: DiMENhydriNATE IV* 50 MG/ML VIAL IV PUSH PRN (15:49)
[2019-02-17] MEDS ORDERED: Bupivacaine 0.5%* 50 ML MDV VIAL ONE (16:10)
[2019-02-17] MEDS ORDERED: Midazolam* 1 MG/ML 5 ML VIAL (5 MG) ONE (16:14)
[2019-02-17] MEDS ORDERED: fentaNYL* 50 MCG/ML 2 ML VIAL (100 MCG VIAL) ONE (16:25)
[2019-02-17] MEDS ORDERED: Ondansetron INJ* 2 MG/ML VIAL ONE (16:33)
[2019-02-17] MEDS ORDERED: Dexamethasone IV* 4 MG/ML 1 ML (4 MG) ONE (16:33)
[2019-02-17] MEDS ORDERED: Lidocaine 2% PF * 5 ML VIAL ONE (16:33)
[2019-02-17] MEDS ORDERED: Ketorolac INJ* 30 MG/ML 1 ML VIAL ONE (16:33)
[2019-02-17] MEDS ORDERED: Propofol* 10 MG/ML 20 ML BTL ONE (16:33)
[2019-02-17] MEDS ORDERED: hydrALAZINE IV* 20 MG/ML VIAL ONE (17:39)
[2019-02-17] MEDS ORDERED: hydrALAZINE IV* 20 MG/ML VIAL IV SLOW PU ONE (17:40)
[2019-02-17] MEDS ORDERED: HYDROmorphone INJ1* 1 MG/ML SYRINGE ONE (17:54)
[2019-02-17] MEDS ORDERED: oxyCODONE/Acetamin 5/325 MG* TAB ONE (17:54)
[2019-02-17] MEDS: HYDROmorphone INJ1* 1 MG/ML SYRINGE IV PRN ×3 (17:55→18:03)
[2019-02-17 18:49] VITALS: BP 189/74
--- NOTE | 2019-03-18 00:21 | OP ---
DATE OF OPERATION: 02/17/19 - SDS DATE OF : 63 SURGEON: Craig Euceda MD DENTAL TECH: Parveen Galdamez PA-C. PRE-OP DIAGNOSIS: Right first TMT joint dislocation fracture. POST-OP DIAGNOSIS: Right first TMT joint dislocation fracture. OPERATIVE PROCEDURE: Internal fixation of left midfoot fracture. DESCRIPTION OF PROCEDURE: The patient was taken to the operating room where a longitudinal incision was made over the dorsum of the first TMT joint. The joint was exposed through capsulotomy and noted to be subluxed medially with a large plantar lateral intraarticular fracture. Fixation consisted of bridging plate along the medial aspect of the first TMT joint. This was a 3.0 mm Recon plate with 3.0 mm cortical screws. The screws were passed through the first cuneiform, first metatarsal with one into the base of second metatarsal. This reduced the first metatarsal subluxation as well as the first metatarsal base fracture. The position of hardware was then verified with C-arm, closed with 3- 0 Monocryl sutures dorsally as well as interrupted nylon sutures and plaster compression dressing applied. [id number]/[facility] #: [id number] [facility]
== END 2019-02-17 19:06 | disposition home or self-care (01) ==
LOC: OR 13:02
PROVIDERS: ATTEND Orthopaedic Surgery
DX: S92.311A Displaced fracture of first metatarsal bone, right foot, initial encounter for closed fracture (principal); I10 Essential (primary) hypertension; I34.0 Nonrheumatic mitral (valve) insufficiency; E66.9 Obesity, unspecified; Z72.0 Tobacco use; W01.0XXA Fall on same level from slipping, tripping and stumbling without subsequent striking against object, initial encounter; Y92.009 Unspecified place in unspecified non-institutional (private) residence as the place of occurrence of the external cause
CPT/HCPCS: 76000; A9270-GY; C1713; J0360; J0690; J1100; J1170; J1885; J2250; J2405; J2704; J3010; J3490